=== PATIENT | female | born 1995 | race Caucasian/White ===

== ENCOUNTER 2017-12-27 15:40 | Emergency (ER) | END 2017-12-27 22:44 | disposition home or self-care (01) ==

== ENCOUNTER 2018-01-01 13:27 | Inpatient (IN) | END 2018-01-04 14:53 | disposition home or self-care (01) | DRG 781 ==

== ENCOUNTER 2018-06-15 17:00 | Outpatient (CLI) | payer MEDICAID ==
[~2018-06-15] VITALS: Ht 144.8 cm; Wt 63.4 kg
[2018-06-15 17:38] VITALS: BP 97/54; PULSE 70; RESP 18
[2018-06-15 17:39] VITALS: Ht 144.8 cm; Wt 63.4 kg
[2018-06-15] MEDS ORDERED: FER325 PO (17:41)
[2018-06-15] MEDS ORDERED: PREN-99 PO (17:41)
--- NOTE | 2018-06-15 20:32 | PN ---
Triage Information Date/Time Reason for visit: Antepartum testing for history of demise at 26 weeks Weeks of Gestation 32 weeks and 3 days /Para Diabetes: none Hypertention: none Objective Vital Signs Date Temp Pulse Resp B/P (MAP) Pulse Ox O2 O2 Flow FiO2 Time Delivery Rate 06/15/18 98.1 70 18 97/54 (68) Room Air 17:38 Heart Rate: 140's Contractions: None Results/Medications Imaging Results FINDINGS: Single intrauterine gestation. Presentation: Cephalic. Placenta: Fundal No evidence of placental abruption. No evidence of placenta previa. breathing movement = 2/2 tone = 2/2 motion = 2/2 CAIT = 2/2 CAIT = 22.5 cm heart rate: 120 beats per minute IMPRESSION: Single intrauterine gestation. Biophysical profile 11/29 Disposition: Discharge Assessment/Plan 23 years old with single intrauterine at 32 weeks and 3 days with a JD of 08/07/2018 presents for antepartum testing due to history of demise at 26+ weeks..She states good movement. She denies nausea, vomiting, shortness of breath, chest pain, abdominal pain, headache, visual changes, vaginal bleeding or LOF. - FHR: No sign of metabolic acidosis- Category I - Contractions: None -Ultrasound performed as noted above - Continue antepartum testing - Symptoms and sign of labor, preeclampsia, kick count discussed with patient, she voiced understanding. All of her questions answered. - Patient was discharged home in stable condition with the appropriate discharge instructions provided. I would like patient to have close follow-up with her primary physician or outpatient clinic in 1-2 days or return to triage for worsening symptoms or any other urgent concerns. HORTENCIA SALMERON Jun 15, 2018 20:32
--- NOTE | 2018-06-15 21:27 | TRIAGE ---
OB Triage Datetime Report Generated by CPN: 06/15/2018 21:27 Datetime: 06/15/2018 19:48 Stage of : OB Triage Monitor Mode: External Quality: Mild Pattern: Normal: <= 5 Contractions in 10 Minutes Resting Tone Anna: Relaxed Heart Rate FHR Baseline Rate: 120 Monitor Mode: External US FHR Baseline Changes: No Baseline Change Variability: Moderate 6-25 bpm Accelerations: 15X15 Decelerations: None Category: Category I Datetime: 06/15/2018 19:18 Stage of : OB Triage Labor Evaluation Frequency: 3-8 Monitor Mode: External Duration (sec)2399: 30-40 Quality: Mild Pattern: Normal: <= 5 Contractions in 10 Minutes Resting Tone Anna: Relaxed Heart Rate FHR Baseline Rate: 130 Monitor Mode: External US FHR Baseline Changes: No Baseline Change Variability: Moderate 6-25 bpm Accelerations: 15X15 Decelerations: None Category: Category I Pain Assessment Pain Scale: 0 Pain Presence: None/Denies Pain Type: N/A Pain Assessment Comments: Pt denies discomfort or ucs Datetime: 06/15/2018 18:49 Labor Evaluation Frequency: x5 Monitor Mode: External Duration (sec)2399: 40-50 Quality: Mild Resting Tone Anna: Relaxed Contraction Comments: pt denies feeling feeling UCs Heart Rate FHR Baseline Rate: 115 Monitor Mode: External US FHR Baseline Changes: No Baseline Change Variability: Moderate 6-25 bpm Accelerations: 15X15 Decelerations: None Category: Category I Datetime: 06/15/2018 17:49 Stage of : OB Triage Assessment Type: Triage Maternal Assessment Level of Consciousness: Fully Conscious DTR's/Clonus: DTRs 2+; No Clonus Headache: Denies Blurred Vision: No Respiratory Effort: Unlabored; Regular Rhythm; Equal Expansion Breath Sounds, Left: Clear and Equal Breath Sounds, Right: Clear and Equal Nausea/Vomiting: Denies RUQ Epigastric Pain: Denies Lower Extremities Edema: None Degree: None Upper Extremities Edema: None Degree: None Facial Edema: None Temperature Route: Oral Fall Risk Assessment History of Falling: (0) No Secondary Diagnosis: (0) No Ambulatory Aid: (0) Bedrest/Nurse Assist IV Therapy: (0) No Gait: (0) Normal/Bedrest/Immobile Mental Status: (0) Oriented to Own Ability Fall Score: 0 Fall Risk Score Definition: No Risk: No action required Labor Evaluation Frequency: x2 Monitor Mode: External Duration (sec)2399: 50-60 Quality: Mild Resting Tone Anna: Relaxed Contraction Comments: pt denies feeling UCs Heart Rate FHR Baseline Rate: 115 Monitor Mode: External US FHR Baseline Changes: No Baseline Change Variability: Moderate 6-25 bpm Accelerations: 15X15 Decelerations: None Category: Category I Pain Assessment Pain Scale: 0 Pain Presence: None/Denies Pain Type: N/A Datetime: 06/15/2018 14:50 Time of Arrival: 06/15/2018 16:54 EGA: 32.3 Arrived By: Ambulatory Arrived From: Office Chief Complaint: pt is here for extended monitoring due to the hx of FD at 6 month Movement: Present Contractions: Denies/Absent Rupture of Membranes: Denies Vaginal Discharge: Denies Recent Sexual Intercouse: Denies Abdominal Trauma: Not Applicable Patient Complaints: None Time Provider Notified: 06/15/2018 17:58 Provider Notified: Dr Mata Initial Plan: ALONDRA
--- NOTE | 2018-06-16 03:30 | NSTRPT ---
NST Information Datetime Report Generated by CPN: 06/16/2018 03:29 Datetime: 06/15/2018 14:49 NST Information EGA: 32.3 Datetime: 06/15/2018 14:20 Test Number: 1 Time on Monitor: 06/15/2018 15:10 Time off Monitor: 06/15/2018 16:03 NST Duration (Min): 53 Reason for NST: Previous Demise Test and Monitor Explained: Monitor Explained; Test Explained; Verbalized Understanding Pulse: 68 SBP: 93 DBP: 52 Test Evaluation NST Interventions: Reposition Patient; Acoustic Stimulation Patient States Movement: Present Contraction Frequency: x2 FHR Baseline : 120 Variability: Moderate 6-25bpm Accelerations: 15X15 Decelerations: Variable FHR Category: Category II NST Results: Questionable Comments: To u/s. Cephalic. CAIT 16.[address] Farooq, Pt sent to triage for extended monitoring. Dr Khan informed. Orders received. Phone report to Eun Rogers RN, OB Triage Electronically Signed By E-Signature: with User ID: [id number]
== END 2018-06-15 20:20 | disposition home or self-care (01) ==
LOC: L-D 17:00 → OBT 17:00 → L-D 17:20 → OBT 20:20
PROVIDERS: ATTEND Obstetrics & Gynecology
DX: O09.293 Supervision of pregnancy with other poor reproductive or obstetric history, third trimester (principal); Z3A.32 32 weeks gestation of pregnancy
CPT/HCPCS: 76818; Z7500; G0463

== ENCOUNTER 2018-07-03 10:41 | Outpatient (CLI) | payer MEDICAID ==
[~2018-07-03] VITALS: Ht 149.9 cm; Wt 53.0 kg
[~2018-07-03 10:41] MED LIST: FER325 PO; PREN-99 PO
[2018-07-03 10:46] VITALS: Ht 149.9 cm; Wt 53.0 kg
[2018-07-03] MEDS ORDERED: LACTATED RINGER'S 1,000 ML IV SCH (11:10)
--- NOTE | 2018-07-03 13:29 | PN ---
Triage Information Date/Time Reason for visit: Uterine contractions Weeks of Gestation 35+ /Para n/a Diabetes: none Hypertention: none Objective Heart Rate: 140's Contractions: None Results/Medications Results 24 hrs Laboratory Tests Test 07/03/18 10:54 Urine Color YELLOW Urine Clarity CLOUDY A Urine pH 6.0 Urine Specific [place] 1.019 Urine Ketones TRACE A Urine Nitrite NEGATIVE Urine Bilirubin NEGATIVE Urine Urobilinogen NEGATIVE Urine Leukocyte Esterase 1+ H Urine Microscopic RBC 5 Urine Microscopic WBC 33 H Urine Squamous Epithelial Cells FEW Urine Bacteria FEW A Urine Mucus MANY A Urine Hemoglobin NEGATIVE Urine Glucose NEGATIVE Urine Total Protein NEGATIVE Medications Current Medications Lactated Ringer's 1,000 ml @ 250 mls/hr Q4H IV Last administered on 07/03/18at 11:32; Admin Dose 250 MLS/HR; Start 07/03/18 at 11:10 Disposition: Discharge Assessment/Plan CX clsoed received IV hydration BPP 01/31 Discharged with precautions Questions answered Follow up with provider DEREK MOSQUEDA M.D. Jul 03, 2018 13:29
--- NOTE | 2018-07-03 13:58 | TRIAGE ---
OB Triage Datetime Report Generated by CPN: 07/03/2018 13:57 Datetime: 07/03/2018 13:42 Stage of : OB Triage Maternal Assessment Level of Consciousness: Fully Conscious DTR's/Clonus: DTRs 1+ Headache: Denies Nausea/Vomiting: Denies RUQ Epigastric Pain: Denies Monitor Mode: External Pattern: Normal: <= 5 Contractions in 10 Minutes Resting Tone [place]: Relaxed Heart Rate FHR Baseline Rate: 130 Monitor Mode: External US Variability: Moderate 6-25 bpm Accelerations: 15X15 Decelerations: None Category: Category I Pain Assessment Pain Scale: 0 Pain Presence: None/Denies Pain Type: N/A Pain Location: Back Pain Goal: 3 Vaginal Exam Membrane Status: Intact Datetime: 07/03/2018 13:00 Stage of : OB Triage Maternal Assessment Level of Consciousness: Fully Conscious DTR's/Clonus: DTRs 1+ Headache: Denies Nausea/Vomiting: Denies RUQ Epigastric Pain: Denies Labor Evaluation Frequency: X2 Monitor Mode: External Duration (sec)2399: 50 Quality: Mild Pattern: Normal: <= 5 Contractions in 10 Minutes Resting Tone [place]: Relaxed Heart Rate FHR Baseline Rate: 130 Monitor Mode: External US Variability: Moderate 6-25 bpm Accelerations: 15X15 Decelerations: None Category: Category I Pain Assessment Pain Scale: 3 Pain Presence: Intermittent Pain Type: Cramping Pain Location: Back Pain Goal: 3 Vaginal Exam Membrane Status: Intact Datetime: 07/03/2018 12:00 Stage of : OB Triage Maternal Assessment Level of Consciousness: Fully Conscious DTR's/Clonus: DTRs 1+ Headache: Denies Nausea/Vomiting: Denies RUQ Epigastric Pain: Denies Labor Evaluation Frequency: X3 Monitor Mode: External Duration (sec)2399: 50 Quality: Mild Pattern: Normal: <= 5 Contractions in 10 Minutes Resting Tone [place]: Relaxed Heart Rate FHR Baseline Rate: 130 Monitor Mode: External US Variability: Moderate 6-25 bpm Accelerations: 15X15 Decelerations: None Category: Category I Pain Assessment Pain Scale: 3 Pain Presence: Intermittent Pain Type: Cramping Pain Location: Back Pain Goal: 3 Vaginal Exam Membrane Status: Intact Datetime: 07/03/2018 11:01 Maternal Assessment Level of Consciousness: Fully Conscious DTR's/Clonus: DTRs 1+ Headache: Denies Blurred Vision: No Nausea/Vomiting: Denies RUQ Epigastric Pain: Denies Facial Edema: None Labor Evaluation Frequency: X1 Monitor Mode: External Duration (sec)2399: 50 Quality: Mild Pattern: Normal: <= 5 Contractions in 10 Minutes Resting Tone [place]: Relaxed Heart Rate FHR Baseline Rate: 130 Monitor Mode: External US Variability: Moderate 6-25 bpm Accelerations: 15X15 Decelerations: None Category: Category I Pain Assessment Pain Scale: 3 Pain Presence: Intermittent Pain Type: Cramping Pain Location: Back Pain Goal: 3 Vaginal Exam Membrane Status: Intact Datetime: 07/03/2018 10:45 Assessment Type: Triage Maternal Assessment Level of Consciousness: Fully Conscious DTR's/Clonus: DTRs 2+; No Clonus Headache: Denies Blurred Vision: No Respiratory Effort: Unlabored; Regular Rhythm; Equal Expansion Breath Sounds, Left: Clear and Equal Breath Sounds, Right: Clear and Equal Nausea/Vomiting: Denies RUQ Epigastric Pain: Denies Lower Extremities Edema: None Degree: None Upper Extremities Edema: None Degree: None Facial Edema: None Fall Risk Assessment History of Falling: (0) No Secondary Diagnosis: (0) No Ambulatory Aid: (0) Bedrest/Nurse Assist IV Therapy: (0) No Gait: (0) Normal/Bedrest/Immobile Mental Status: (0) Oriented to Own Ability Fall Score: 0 Fall Risk Score Definition: No Risk: No action required Datetime: 07/03/2018 10:42 Time of Arrival: 07/03/2018 10:44 EGA: 35.0 Arrived By: Ambulatory Arrived From: Home Chief Complaint: PT CAME IN FROM NST DUE TO UC'S PT STATES FEELING THEM Movement: Present Contractions: Irregular Time Contractions Began: 07/03/2018 08:00 Contractions: 5-8 Rupture of Membranes: Denies Vaginal Discharge: Denies Recent Sexual Intercouse: Denies Abdominal Trauma: Not Applicable Additional Patient Complaints: NONE Time Provider Notified: 07/03/2018 10:45 Provider Notified: GENEVIEVE Initial Plan: LR HYDRATION Datetime: 06/15/2018 17:49 Fall Score: 0 Fall Risk Score Definition: No Risk: No action required Datetime: 06/15/2018 14:50 EGA: 32.3
== END 2018-07-03 13:35 | disposition home or self-care (01) ==
LOC: OBT 10:41 → L-D 10:42 → OBT 13:35
PROVIDERS: ATTEND Obstetrics & Gynecology
DX: O47.03 False labor before 37 completed weeks of gestation, third trimester (principal); Z3A.35 35 weeks gestation of pregnancy
CPT/HCPCS: 36415; 81001; 96360; 96361; J7120; Z7500; G0463

== ENCOUNTER 2018-07-07 10:59 | Outpatient (CLI) | payer MEDICAID ==
[~2018-07-07] VITALS: Ht 149.9 cm; Wt 65.1 kg
[2018-07-07] MEDS ORDERED: CALC600T24 PO (11:20)
[2018-07-07 11:21] VITALS: Ht 149.9 cm; Wt 65.1 kg
[2018-07-07 11:22] VITALS: BP 104/57; PULSE 88; RESP 18
--- NOTE | 2018-07-07 14:16 | PN ---
Triage Information Date/Time 07/07/2018 Reason for visit: Weeks of Gestation 35 weeks and 4 days /Para Diabetes: none Hypertention: none Additional information 3-year-old with IUP at 35 weeks and 4 days with history of IUFD presented to triage for NST/BPP due to decreased variability and NST in NST clinic yesterday. The patient denies any leaking of fluid, vaginal bleeding decreased movement or any other complaints. Objective Vital Signs Date Temp Pulse Resp B/P (MAP) Pulse Ox O2 O2 Flow FiO2 Time Delivery Rate 07/07/18 99.1 88 18 104/57 Room Air 11:22 (73) Heart Rate: 130's Heart Rate Comments Category 1 and reactive Contractions: None Exam General appearance: Alert and oriented x4 does not appear to be in any acute distress abdomen: Soft, gravid, fundal height consider gestational age NST: Category 1 BPP: 11/29 CAIT: 12.1 Results/Medications Imaging Results PROCEDURE: US OB biophysical profile. CLINICAL INDICATION: decreased movements, contractions TECHNIQUE: Multiple sonographic images of the pelvis were obtained. The images were reviewed on a PACS workstation. COMPARISON: No prior studies are available for comparison. FINDINGS: There is a single live intrauterine gestation. Cardiac activity is present with 150 beats per minute. There is a vertex presentation. The placenta is posterior. There is no evidence of placental abruption. There is a normal amount of amniotic fluid with an CAIT = 12.1 cm. Biophysical profile: movement 2/2 tone 2/2. breathing 2/2 CAIT 2/2 Total 11/29 RPTAT: AA . IMPRESSION: Normal biophysical profile. Disposition: Discharge Assessment/Plan IUP at 35 weeks and 4 days History of IUFD being followed by NST BPP twice a week Currently testing reassuring patient was reassured Advised to have follow-up with testing twice a week labor precautions kick count discussed Follow-up with primary OB office within 24-48 hours after discharge from the hospital discussed Patient verbalized understanding all questions were answered to patient's best satisfaction KACEY STEVEN MD Jul 07, 2018 14:16
--- NOTE | 2018-07-07 14:39 | TRIAGE ---
OB Triage Datetime Report Generated by CPN: 07/07/2018 14:39 Datetime: 07/07/2018 14:00 Stage of : OB Triage Maternal Assessment Level of Consciousness: Fully Conscious Labor Evaluation Frequency: NONE Monitor Mode: External Resting Tone Epes: Relaxed Heart Rate FHR Baseline Rate: 125 Monitor Mode: External US Variability: Moderate 6-25 bpm Accelerations: 15X15 Decelerations: None Category: Category I Pain Assessment Pain Scale: 0 Pain Goal: 3 Vaginal Exam Membrane Status: Intact Vaginal Bleeding: None Datetime: 07/07/2018 13:00 Stage of : OB Triage Maternal Assessment Level of Consciousness: Fully Conscious Labor Evaluation Frequency: NONE Monitor Mode: External Resting Tone [place]: Relaxed Heart Rate FHR Baseline Rate: 135 Monitor Mode: External US Variability: Moderate 6-25 bpm Accelerations: 15X15 Decelerations: None Category: Category I Pain Assessment Pain Scale: 0 Pain Goal: 3 Vaginal Exam Membrane Status: Intact Vaginal Bleeding: None Datetime: 07/07/2018 12:00 Stage of : OB Triage Maternal Assessment Level of Consciousness: Fully Conscious Labor Evaluation Frequency: NONE Monitor Mode: External Resting Tone [place]: Relaxed Heart Rate FHR Baseline Rate: 135 Monitor Mode: External US Variability: Moderate 6-25 bpm Accelerations: 15X15 Decelerations: None Category: Category I Pain Assessment Pain Scale: 0 Pain Goal: 3 Vaginal Exam Membrane Status: Intact Vaginal Bleeding: None Datetime: 07/07/2018 11:16 Assessment Type: Triage Maternal Assessment Level of Consciousness: Fully Conscious DTR's/Clonus: DTRs 2+; No Clonus Headache: Denies Blurred Vision: No Respiratory Effort: Unlabored; Regular Rhythm; Equal Expansion Breath Sounds, Left: Clear and Equal Breath Sounds, Right: Clear and Equal Nausea/Vomiting: Denies RUQ Epigastric Pain: Denies Lower Extremities Edema: None Degree: None Upper Extremities Edema: None Degree: None Facial Edema: None Fall Risk Assessment History of Falling: (0) No Secondary Diagnosis: (0) No Ambulatory Aid: (0) Bedrest/Nurse Assist IV Therapy: (0) No Gait: (0) Normal/Bedrest/Immobile Mental Status: (0) Oriented to Own Ability Fall Score: 0 Fall Risk Score Definition: No Risk: No action required Datetime: 07/07/2018 11:14 Time of Arrival: 07/07/2018 10:41 EGA: 35.4 Arrived By: Ambulatory Arrived From: Home Chief Complaint: PT HERE FOR NST/BPP FOR H/O IUFD. Movement: Present Contractions: Denies/Absent Rupture of Membranes: Denies Vaginal Bleeding: None Vaginal Discharge: Denies Recent Sexual Intercouse: Denies Abdominal Trauma: Not Applicable Patient Complaints: None Time Provider Notified: 07/07/2018 11:36 Provider Notified: ESHAGHIAN Initial Plan: BPP/NST Datetime: 07/07/2018 11:04 Monitor Mode: External Monitor Mode: External US Datetime: 07/03/2018 10:45 Fall Score: 0 Fall Risk Score Definition: No Risk: No action required Datetime: 07/03/2018 10:42 EGA: 35.0 Datetime: 06/15/2018 17:49 Fall Score: 0 Fall Risk Score Definition: No Risk: No action required Datetime: 06/15/2018 14:50 EGA: 32.3
== END 2018-07-07 14:22 | disposition home or self-care (01) ==
LOC: OBT 10:59 → L-D 10:59 → OBT 14:22
PROVIDERS: ATTEND Obstetrics & Gynecology
DX: O36.8130 Decreased fetal movements, third trimester, not applicable or unspecified (principal); O62.9 Abnormality of forces of labor, unspecified; Z3A.35 35 weeks gestation of pregnancy
CPT/HCPCS: 76818; Z7500; G0463

== ENCOUNTER 2018-08-03 20:00 | Inpatient (IN) | payer MEDICAID ==
[~2018-08-03] VITALS: Ht 149.9 cm; Wt 68.2 kg
[~2018-08-03 20:00] MED LIST changes: +CALC600T24 PO
[2018-08-03 21:11] VITALS: Ht 149.9 cm; Wt 68.2 kg
[2018-08-03] MEDS ORDERED: MISOPROSTOL 200 MCG TAB PR PRN (21:30)
[2018-08-03] MEDS ORDERED: METHYLERGONOVINE 0.2 MG INJ IM PRN (21:30)
[2018-08-03] MEDS ORDERED: CARBOPROST 250 MCG INJ IM PRN (21:30)
[2018-08-03] MEDS ORDERED: OXYTOCIN 30 UNITS/LR 500 ML IV SCH ×3 (21:30→22:00)
[2018-08-03] MEDS ORDERED: MINERAL OIL LIGHT 10 ML VIAL TOP PRN (21:30)
[2018-08-03] MEDS ORDERED: BUTORPHANOL 2 MG INJ IV PRN (21:30)
[2018-08-03] MEDS ORDERED: OXYTOCIN 30 UNITS/LR 500 ML IV PRN (21:30)
[2018-08-03] MEDS ORDERED: LIDOCAINE 1% (MPF) 30 ML INJ INJ PRN (21:30)
[2018-08-03] MEDS: LACTATED RINGER'S 1,000 ML IV SCH (21:42)
--- NOTE | 2018-08-03 22:16 | HP ---
Date/Time of Note Date/Time of Note DATE: 08/03/18 TIME: 22:11 OB - History Hx of Present Free Text/Dictation 23-year-old 3 para 2 at 39 weeks and 3 days of gestation with estimated date of delivery August 07, 2018 Patient presents with chief complaint of uterine contractions, she reports positive movement, denies any vaginal bleeding or leaking fluid GBS status is negative Past obstetrical history significant for first with intrauterine demise and second normal spontaneous delivery at term Both deliveries were in [facility] Estimated Due Date: Aug 07, 2018 : 3 Para: 2 Care: Good Care Past Family/Social History * Past Medical, Surgical, Family and Obstetric Histories reviewed from chart. OB Admission Exam Physical Exam HEENT: WNL Heart: Rhythm Normal Lungs: Clear, Equal Abdomen: WNL Extremities: Normal Reflexes: Normal Cervical Dilatation: 2cm Effacement: 50% Station: -3 Membranes: Intact Heart Rate: 140's Accelerations: Accelerations Present Decelerations: No Decelerations Varibility: Moderate Contractions on Admission: >10 Minutes Apart Intensity: Moderate Last 72 hours Lab Results CBC & BMP 08/03/18 21:35 PROCEDURE: US OB. CLINICAL INDICATION: Size and dates TECHNIQUE: Multiple sonographic images of the pelvis and gravid uterus were obtained. The images were reviewed on a PACS workstation. COMPARISON: No prior studies are available for comparison. FINDINGS: Gestation: Single live intrauterine gestation. Cardiac activity: 150 beats per minute. Presentation: Vertex. Placenta: Location: Fundal right Appearance: No previa or abruption. Measurements: BPD = 9.1 cm, 37 weeks and 1 day HC = 33.4 cm, 38 weeks and 1 day AC = 34.8 cm, 38 weeks and 5 days FL = 7.2 cm, 37 weeks and 0 days Gestational Age: AUA estimated gestational age: 37 weeks 5 days LMP estimated gestational age: 39 weeks 3 days AUA estimated date of delivery: 08/19/18 The EFW = 3381 g, 38.1%ile based on LMP age. RPTAT: AA IMPRESSION: Single live intrauterine gestation of 37 weeks 5 days by ultrasound criteria. .Lazaro Cao MD, MD Date Time Electronically viewed and signed by .Lazaro Cao MD, MD on 08/03/2018 22:15 .S/ CC: JOSEPH MOSS MD [id number] PROCEDURE: US OB biophysical profile. CLINICAL INDICATION: decreased movements, TECHNIQUE: Multiple sonographic images of the pelvis were obtained. The images were reviewed on a PACS workstation. COMPARISON: No prior studies are available for comparison. FINDINGS: There is a single live intrauterine gestation. Cardiac activity is present with 142 beats per minute. There is a vertex presentation. The placenta is fundal right. There is no evidence of placental abruption. There is a normal amount of amniotic fluid with an CAIT = 9.2 cm. Biophysical profile: movement 2/2 tone 2/2. breathing 2/2 CAIT 2/2 Total 11/29 RPTAT: AA . IMPRESSION: Normal biophysical profile. . .Lazaro Cao MD, MD Date Time Electronically viewed and signed by .Lazaro Cao MD, MD on 08/03/2018 22:16 .S/ CC: JOSEPH MOSS MD [id number] OB Assessment/Plan Reason for admission: active labor Induction Method: per Pitocin Protocol Other plan: Admit to labor and delivery Oxytocin augmentation Pain meds as needed Copies To: CC: JOBY ARAMBULA MD ; JOSEPH MOSS MD Aug 03, 2018 22:15
--- NOTE | 2018-08-04 00:07 | PREAC ---
Date/Time of Note Date/Time of Note DATE: 08/04/18 TIME: 00:06 Anesthesia Eval and Record Evaluation Time Pre-Procedure Interview DATE: 08/04/18 TIME: 00:06 Age 23 Sex female NPO: 8 hrs Preoperative diagnosis labor pain Planned procedure epidural Past Medical History Past Medical History: Includes : Gestational age: (38) Surgery & Anesthesia Issues No known issue Meds Anticoagulation: No Beta Chetna within 24 hr: No Reason Beta Chetna not given: Pt. not on B-Chetna Reported Medications Calcium Carbonate* (Calcium Carbonate*) 600 MG Ca Tab, 600 MG PO DAILY, TAB 07/07/18 Ferrous Sulfate* (Ferrous Sulfate*) 325 Mg Tabec, 325 MG PO DAILY, TAB 06/15/18 Vit #76/Iron,Carb/FA (Pnv 29-1 Tablet) 1 Each Tablet, 1 EACH PO DAILY, TAB 06/15/18 Current Medications Lactated Ringer's 1,000 ml @ 125 mls/hr Q8H IV Last administered on 08/03/18at 21:42; Admin Dose 125 MLS/HR; Start 08/03/18 at 21:22 Butorphanol Tartrate (Stadol) 2 mg Q2H PRN IV .PAIN; Start 08/03/18 at 21:30 Lidocaine (Xylocaine 1% (Mpf)) 30 ml ONCE PRN INJ .EPISIOTOMY; Start 08/03/18 at 21:30 Oxytocin/Lactated Ringer's 500 ml @ 500 mls/hr ONCE POST IV ; Start 08/03/18 at 21:30 Oxytocin/Lactated Ringer's 500 ml @ 125 mls/hr POST IV ; Start 08/03/18 at 21:30 Oxytocin/Lactated Ringer's 500 ml @ 0 mls/hr ONCE PRN IV .VAGINAL BLEEDING; Start 08/03/18 at 21:30 Methylergonovine Maleate (Methergine) 0.2 mg ONCE PRN IM .VAGINAL BLEEDING; Start 08/03/18 at 21:30 Carboprost Tromethamine (Hemabate) 250 mcg ONCE PRN IM .VAGINAL BLEEDING; Start 08/03/18 at 21:30 Misoprostol (Cytotec) 1,000 mcg ONCE PRN OR .VAGINAL BLEEDING; Start 08/03/18 at 21:30 Mineral Oil (Muri-Lube) 20 ml ONCE PRN TOP FOR DELIVERY; Start 08/03/18 at 21:30 Oxytocin/Lactated Ringer's 500 ml @ 0 mls/hr FOR AUGMENTATION IV Last administered on 08/03/18at 22:56; Admin Dose 1 MLS/HR; Start 08/03/18 at 22:00 Meds reviewed: Yes Allergies Coded Allergies: No Known Allergy (Unverified , 08/03/18) Allergies Reviewed: Yes Labs/Studies Labs Reviewed: Reviewed by anesthesiologist Result Diagram: 08/03/18 2135 Laboratory Tests 08/03/18 21:35 Blood Bank Test 08/03/18 21:35 Antibody Screen NEGATIVE Blood Type O POSITIVE Rh Immune Globulin Candidate NO test: Positive Studies: ECG (n/a), CXR (n/a) Pre-procedure Exam Airway: Adequate mouth opening Mallampati: Mallampati I Teeth: Normal Lung: Normal Heart: Normal ASA Physical Status ASA physical status: 2 Emergency: None Planned Anesthetic Neuraxial: Epidural Pre-operative Attestations Prior to commencing anesthesia and surgery, the patient was re-evaluated, there was verification of: *The patient's identity *The results of appropriate recent lab work and preoperative vital signs *The above evaluation not changing prior to induction *Anesthetic plan, risk benefits, alternative and complications discussed with patient/family; questions answered; patient/family understands, accepts and wishes to proceed. LOW SHRESTHA MD Aug 04, 2018 00:07
[2018-08-04] MEDS ORDERED: FENTAnyl 2MCG/ML-ROPIV 0.2% 100 ML ONE (00:21)
[2018-08-04] MEDS: LACTATED RINGER'S 1,000 ML IV SCH ×4 (00:24→12:06)
[2018-08-04] MEDS ORDERED: ONDANSETRON 4 MG INJ IV PRN (00:30)
[2018-08-04] MEDS ORDERED: NALOXONE (0.4 MG/ML) INJ IV PRN (00:30)
[2018-08-04] MEDS ORDERED: FENTAnyl 2MCG/ML-ROPIV 0.2% 100 ML BAG EPI SCH (00:30)
--- NOTE | 2018-08-04 06:55 | PAC ---
Date/Time of Note Date/Time of Note DATE: 08/04/18 TIME: 06:54 Post-Anesthesia Notes Post-Anesthesia Note Last documented vital signs SAt 99%, HR 76 BP 112/56, RR 19 Temp 98.3 Activity: WNL Respiratory function: WNL Cardiovascular function: WNL Mental status: Baseline Pain reasonably controlled: Yes Hydration appropriate: Yes Nausea/Vomiting absent: No LOW SHRESTHA MD Aug 04, 2018 06:55
[2018-08-04] MEDS ORDERED: MINERAL OIL LIGHT 10 ML VIAL TOP PRN (10:30)
--- NOTE | 2018-08-04 13:25 | LDN ---
Date/Time of Note Date/Time of Note DATE: 08/04/18 TIME: 13:23 Delivery Summary of normal male Weeks of Gestation 39w4d Placenta Delivered: Spontaneously, Intact & Complete Meconium: Thick Episiotomy: No Perineal laceration: 0 Anesthesia type: Epidural Estimated blood loss: 100 Sponge & Needle done & correct: Yes All needle counts correct: Yes Any foreign bodies felt in the: No Delivery Information Sex Infant Sex: male Apgars 1 Minute: 8 5 Minute: 9 Suctioning Nose & mouth suctioned at carlyle: Yes Delee suction performed: Yes Umbilical Cord Umbilical cord with: 3 Vessels Cord presentations: no nuchal cord Cord Blood was obtained: Yes Mother & Baby Disposition Disposition Mom & Baby to Maternity; Good: Yes Mom transferred to: Other Baby to NICU: No () NGUYỄN MARTIN MD Aug 04, 2018 13:25
[2018-08-04] MEDS ORDERED: IBUPROFEN 600 MG TAB PO PRN (14:45)
[2018-08-04] MEDS ORDERED: OXYCODONE/ASPIRIN (4.88/325) TAB PO PRN ×2 (15:00→17:30)
[2018-08-04 17:00] VITALS: BP 97/65; PULSE 59; RESP 18
[2018-08-04] MEDS ORDERED: ZOLPIDEM 5 MG TAB PO PRN (17:30)
[2018-08-04] MEDS ORDERED: METHYLERGONOVINE 0.2 MG INJ IM PRN (17:30)
[2018-08-04] MEDS ORDERED: MISOPROSTOL 200 MCG TAB PR PRN (17:30)
[2018-08-04] MEDS ORDERED: OXYTOCIN 30 UNITS/LR 500 ML IV PRN (17:30)
[2018-08-04] MEDS ORDERED: LANOLIN HPA 1 PKT TOP PRN (17:30)
[2018-08-04] MEDS ORDERED: WITCH HAZEL/GLYCERIN PAD PR PRN (17:30)
[2018-08-04] MEDS ORDERED: CARBOPROST 250 MCG INJ IM PRN (17:30)
[2018-08-04] MEDS ORDERED: BENZOCAINE 20% 56 ML SPRAY TOP PRN (17:30)
[2018-08-04] MEDS: IBUPROFEN 600 MG TAB PO SCH (18:00)
[2018-08-04 19:30] VITALS: BP 103/68; PULSE 74; RESP 18
[2018-08-04] MEDS: SENNA/DOCUSATE NA (8.6MG/50MG) TAB PO SCH (21:06)
[2018-08-05] MEDS: IBUPROFEN 600 MG TAB PO SCH ×4 (00:19→18:00)
[2018-08-05 04:00] VITALS: BP 97/60; PULSE 65; RESP 18
[2018-08-05 08:46] VITALS: BP 100/64; PULSE 74; RESP 18
[2018-08-05] MEDS: SENNA/DOCUSATE NA (8.6MG/50MG) TAB PO SCH ×2 (08:46→21:09)
[2018-08-05] MEDS: OXYCODONE/ASPIRIN (4.88/325) TAB PO PRN ×2 (08:46→15:51)
[2018-08-05 12:16] VITALS: BP 107/82; PULSE 76; RESP 18
--- NOTE | 2018-08-05 15:21 | QN ---
Documentation Comment PPD#2s stable afebrile tolerates diet No VB +BM +voids VS stable Gen NAD Abd soft NT ND Genitalia No blood at perineum --->discharge home DEREK MOSQUEDA M.D. Aug 05, 2018 15:21
[2018-08-05 15:51] VITALS: BP 104/64; PULSE 73; RESP 18
[2018-08-05 19:45] VITALS: BP 108/69; PULSE 78; RESP 16
[2018-08-06] MEDS: IBUPROFEN 600 MG TAB PO SCH ×3 (00:10→12:02)
[2018-08-06 04:10] VITALS: BP 102/60; PULSE 80; RESP 18
[2018-08-06 08:00] VITALS: BP 97/64; PULSE 72; RESP 18
[2018-08-06] MEDS ORDERED: DIPHTH/TET/ACEL PERTUSS (ADULT) 0.5 ML VIAL IM* ONE (09:00)
[2018-08-06] MEDS: SENNA/DOCUSATE NA (8.6MG/50MG) TAB PO SCH (09:00)
--- NOTE | 2018-08-06 09:44 | PD.PPDC ---
[employer] Discharge Instruction Condition [id number] Patient Condition: [id number] Fair Diet [id number] Diet: Tfjwm5y Resume Regular Diet Activity/Restrictions [id number] Activity: [id number] Normal Activity May Shower Follow-up Follow-up with Physician: 3, Week/Weeks Return to clinic for Ijnky2Hd HEALTH CARE COACH Instructions: Xyloz3b Fever greater than 101 Chills Worsening abdominal pain Excessive Vaginal Bleeding More than 2 pads per hour Unable to tolerate diet [id number] OB Instructions: Dlxfb8b Breast Tenderness Depression Blurried Vision Headache [id number] Surgical Instructions: Uolwt6p Incisional Drainage Incisional Redness JOBY ARAMBULA MD Aug 06, 2018 09:44
--- NOTE | 2018-08-06 09:46 | DS ---
Date/Time of Note Date/Time of Note DATE: 08/06/18 TIME: 09:46 Obstetrical Discharge Record Final Diagnosis Final Diagnosis: Term delivered Vaginal Delivery Obstetrical Delivery: Spontaneous Condition on Discharge Physical Assessment Last Vitals: stable afebrile Voiding: Yes Bowel Movement: Yes Breast: Soft, non-tender, Filling Fundus: Firm Abdomen and Incision: soft nt Calf Tenderness: No Patient Condition: Fair JOBY ARAMBULA MD Aug 06, 2018 09:46
--- NOTE | 2018-08-07 15:03 | DELSUM ---
Delivery Summary A-C Datetime Report Generated by CPN: 08/07/2018 15:03 DELIVERY PERSONNEL Supervisor Accounts Receivable: [place], May MATERNAL INFORMATION Delivery Anesthesia: Epidural Medications in Delivery: pitocin 20 units Delivery QBL (ml): 100 Placenta Cultured: Yes Maternal Complications: None LABOR SUMMARY EDC: 08/07/2018 00:00 No. Babies in Womb: 1 Attempted: Yes Labor Anesthesia: Epidural LABOR INFORMATION Reason for Induction: Not Applicable Onset of Labor: 08/02/2018 17:00 Complete Dilatation: 08/04/2018 11:56 Oxytocin: N/A Group B Beta Strep: Negative Antibiotics # of Doses: none Steroids Given: None Reason Steroids Not Administered: Not Applicable MEMBRANES Membranes Rupture Method: Artificial Rupture of Membranes: 08/04/2018 11:56 Length of Rupture (hr): 0.87 Amniotic Fluid Color: Clear Amniotic Fluid Amount: Moderate Amniotic Fluid Odor: None STAGES OF LABOR Stage 1 hr: 42 Stage 1 min: 56 Stage 2 hr: 0 Stage 2 min: 52 Stage 3 hr: 0 Stage 3 min: 2 Total Time in Labor hr: 43 Total Time in Labor min: 50 VAGINAL DELIVERY Episiotomy: None Laceration Extension: N/A Laceration Type: None Laceration Repair: Not Applicable Initial Vag Sponge Count: 10 Final Vag Sponge Count: 10 Initial Vag Sharps Count: 1 Final Vag Sharps Count: 1 Sponge Count Correct: Yes; Vaginal Sweep Performed Sharps Count Correct: Yes BABY A INFORMATION Infant Delivery Date/Time: 08/04/2018 12:48 Method of Delivery: Vaginal Born in Route : Yes : N/A Forceps: N/A Vacuum Extraction: N/A Shoulder Dystocia : N/A SHOULDER DYSTOCIA BABY A Infant Delivery Date/Time: 08/04/2018 12:48 PRESENTATION/POSITION BABY A Presentation: Cephalic Cephalic Presentation: Vertex Vertex Position: Right Occipital Anterior Breech Presentation: N/A PLACENTA INFORMATION BABY A Placenta Delivery Time : 08/04/2018 12:50 Placenta Method of Delivery: Spontaneous Placenta Status: Delivered SCORES BABY A Heart Rate 1 min: >100 bpm Resp Effort 1 min: Slow, Irregular Reflex Irritability 1 min: Cough/Sneeze/Pulls Away Muscle Tone 1 min: Some Flexion of Extrem Color 1 min: Blue/Pale Resuscitation Effort 1 min: Tactile Stimulation SCORE 1 MIN: 6 Heart Rate 5 min: >100 bpm Resp Effort 5 min: Good Cry Reflex Irritability 5 min: Cough/Sneeze/Pulls Away Muscle Tone 5 min: Active Motion Color 5 min: Blue/Pale Resuscitation Effort 5 min: Tactile Stimulation SCORE 5 MIN: 8 Heart Rate 10 min: >100 bpm Resp Effort 10 min: Good Cry Reflex Irritability 10 min: Cough/Sneeze/Pulls Away Muscle Tone 10 min: Active Motion Color 10 min: Body [place], Extremit Blue Resuscitation Effort 10 min: Tactile Stimulation SCORE 10 MIN: 9 INFORMATION BABY A Gestational Age at Delivery: 39.4 Gestational Status: Full Term- 39- 40.6 Weeks Infant Outcome : Liveborn Infant Condition : Stable Sex: Male IDENTIFICATION/MEDS BABY A ID Band Number: [id number] ID Band Location: Right Leg; Left Arm Sensor Applied: Yes Sensor Number: [id number] Sensor Location : Cord Clamp WEIGHT/LENGTH BABY A Infant Birthweight (gm): 3055 Infant Weight (lb): 6 Infant Weight (oz): 12 Infant Length (in): 20.00 Length (cm): 50.80 CORD INFORMATION BABY A No. Cord Vessels: 3 Nuchal Cord : N/A Cord Blood Taken: Yes Suction: Mouth; Nose ASSESSMENT BABY A Complications: None Physical Findings at Delivery: Caput [place]aneum Infant Respirations: Appears Normal Pipeline Integrity Engineer/ALS Called : No Infant Care By: Vincenzo Garza Rn Transferred To: Remains with Mother
== END 2018-08-06 14:05 | disposition home or self-care (01) | DRG 807 ==
LOC: L-D 20:57 → PP1 08-04 17:09
PROVIDERS: ADMIT Obstetrics & Gynecology; ATTEND Obstetrics & Gynecology
PROC: 10E0XZZ Delivery of Products of Conception, External Approach (ICD-10-PCS; principal; 2018-08-04)
DX: O77.0 Labor and delivery complicated by meconium in amniotic fluid (principal); Z37.0 Single live birth; Z3A.39 39 weeks gestation of pregnancy
CPT/HCPCS: 76815; 76818; 84443; 85025; 85610; 85730; 86592; 86850; 86900; 86901; 87340; 90715; 99464; J2590; J3010; J7120